=== PATIENT | female | born 2000 | race African-American/Black ===

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

== ENCOUNTER 2021-12-12 13:18 | Emergency (ER) | payer MEDICAID ==
[~2021-12-12] VITALS: Ht 162.6 cm; Wt 74.0 kg
[2021-12-12 15:34] LABS: CLARITY URINE CLOUDY (CLEAR); COLOR URINE YELLOW (YELLOW); KETONES URINE TRACE (NEGATIVE); LEUKOCYTE ESTERASE URINE 2+ (NEGATIVE); NITRITE URINE POSITIVE (NEGATIVE); OCCULT BLOOD URINE NEGATIVE (NEGATIVE); PROTEIN URINE TRACE (NEGATIVE); SPECIFIC GRAVITY URINE 1.026 (1.005-1.030)
[2021-12-12 15:40] LABS: BASOPHILS % 1.1 % (0.0-2.0); EOSINOPHILS % 1.3 % (0.0-5.0); HEMATOCRIT. 37.1 % (36.0-48.0); LYMPHOCYTES % 40.6 % (20.0-50.0); MEAN CORPUSCULAR HEMOGLOBIN 30.9 pg (28.0-32.0); MEAN CORPUSCULAR VOLUME 88.3 fL (81.0-99.0); MEAN PLATELET VOLUME 10.1 fl (7.4-10.4); MONOCYTES % 6.9 % (2.0-8.0); NEUTROPHILS % 50.1 % (40.0-76.0); PLATELET 210 x1000/uL (130-400); RED BLOOD CELL COUNT 4.19 mill/uL (4.2-5.4); RED CELL DISTRIBUTION WIDTH 13.6 % (11.6-14.6)
[2021-12-12 15:43] LABS: CHLORIDE 107 mEq/L (98-107)
[2021-12-12] MEDS ORDERED: KETOROLAC 30MG/ML VIAL IV STA (16:08)
[2021-12-12] MEDS ORDERED: ONDANSETRON HCL 4MG/2ML INJ IV STA (16:08)
[2021-12-12] MEDS ORDERED: FAMOTIDINE 20MG/2ML VIAL IV STA (16:08)
[2021-12-12] MEDS ORDERED: CEFTRIAXONE 1 G PREMIX 50 ML IV ONE (16:15)
[2021-12-12] MEDS ORDERED: SODIUM CHLORIDE 0.9% 1,000 ML IV ONE (16:15)
[2021-12-12 16:27] LABS: HCG SCREEN POSITIVE
[2021-12-12] MEDS ORDERED: NITR-87 MT (18:49)
[2021-12-12] MEDS ORDERED: METO5TAB86 MT (18:49)
[2021-12-12 19:10] VITALS: BP 109/70
== END 2021-12-12 19:17 | disposition home or self-care (01) ==
LOC: ER 14:18
DX: O23.01 Infections of kidney in pregnancy, first trimester (principal); O20.0 Threatened abortion; O34.81 Maternal care for other abnormalities of pelvic organs, first trimester; N83.202 Unspecified ovarian cyst, left side; R16.0 Hepatomegaly, not elsewhere classified; R06.02 Shortness of breath; O26.891 Other specified pregnancy related conditions, first trimester; Z3A.01 Less than 8 weeks gestation of pregnancy; Z20.822 Contact with and (suspected) exposure to COVID-19
CPT/HCPCS: 36415; 76705; 76801; 76817; 80053; 81003; 81025; 83690; 84702; 84703; 85025; 86850; 86900; 86901; 87086; 87426; 93005; 96365; 96375; 99285; J0696; J2405; J7030